=== PATIENT | male | born 1945 | race Caucasian/White ===

== ENCOUNTER 2022-05-15 10:50 | Emergency (ER) | payer OTHER ==
[~2022-05-15] VITALS: Ht 152.4 cm; Wt 100.0 kg
[2022-05-15 12:40] LABS: Basophils # (auto) 0 10 ^3/uL (0-0.2); Basophils % (auto) 0.6 % (0.0-2.0); Eosinophils # (auto) 0.1 10 ^3/uL (0-0.8); Eosinophils % (auto) 1.1 % (0.0-7.0); Hematocrit 45.8 % (41.0-53.0); Hemoglobin 15.4 g/dL (13.5-17.5); Lymphocytes # (auto) 1.3 10 ^3/uL (0.4-5.4); Lymphocytes % (auto) 24.3 % (10.0-50.0); Mean Corpuscular Hemoglobin 32.4 pg (28.0-32.0); Mean Corpuscular Hgb Conc. 33.5 g/dL (32.0-36.0); Mean Corpuscular Volume 96.5 fL (80.0-100.0); Monocytes # (auto) 0.3 10 ^3/uL (0-1.3); Monocytes % (auto) 6.5 % (0.0-12.0); Neutrophils # (auto) 3.6 10 ^3/uL (1.6-8.6); Neutrophils % (auto) 67.5 % (37.0-80.0); Nucleated Red Blood Cells % 0.1 %; Red Blood Cells 4.75 10^6/uL (4.5-5.90); Red Cell Distribution Width 13.8 % (11.8-14.3); White Blood Cell 5.3 10^3/uL (4.4-10.8)
[2022-05-15 12:55] LABS: Albumin 4.1 g/dL (3.4-5.0); Potassium 4.2 mmol/L (3.5-5.1)
[2022-05-15 13:03] LABS: BUN/Creatinine Ratio 17.1; Bilirubin, Total 0.7 mg/dL (0.2-1.0); Total Protein 7.7 g/dL (6.4-8.2)
[2022-05-15] MEDS ORDERED: MECL1TAB42 PO (15:24)
[2022-05-15] MEDS ORDERED: MECLIZINE HCL 25 MG TAB PO ONE (15:30)
[2022-05-15 17:27] VITALS: BP 130/56
== END 2022-05-15 18:17 | disposition home or self-care (01) ==
LOC: ER 10:50
DX: R42 Dizziness and giddiness (principal)
CPT/HCPCS: 36415; 70450; 71045; 80053; 83880; 84484; 85025; 93005; 99285; J8597